=== PATIENT | female | born 1985 | race Two or more races ===

== ENCOUNTER 2023-06-24 06:07 | Day surgery (SDC) | payer OTHER ==
[2023-06-24] MEDS ORDERED: CEPHALEXIN500 M1 PO (17:39)
[2023-06-24] MEDS ORDERED: CIPROFLOXACIN2.5 ML OTIC (17:39)
== END 2023-06-24 20:20 | disposition home or self-care (01) ==
LOC: CIR.AMB 06:07
PROVIDERS: ATTEND Otolaryngology Otology & Neurotology
DX: H71.02 Cholesteatoma of attic, left ear (principal); H72.12 Attic perforation of tympanic membrane, left ear; H90.A12 Conductive hearing loss, unilateral, left ear with restricted hearing on the contralateral side; Z20.822 Contact with and (suspected) exposure to COVID-19